=== PATIENT | male | born 1970 ===

== ENCOUNTER 2024-11-21 17:17 | Emergency (ER) | payer OTHER ==
[2024-11-21] MEDS ORDERED: propofoL 200 MG/20 ML VIAL IV ONE ×6 (17:30→20:00)
[2024-11-21] MEDS ORDERED: CEFTRIAXONE/SODIUM CHLORIDE 2 GM/100 ML PIGGYBACK IV ONE (17:30)
[2024-11-21] MEDS ORDERED: LACTATED RINGER'S 1,000 ML IV ONE (17:30)
[2024-11-21] MEDS ORDERED: fentaNYL citrate 100 MCG/2 ML VIAL IV ONE ×2 (17:30→19:00)
[2024-11-21] MEDS ORDERED: propofoL 100 ML IV SCH (17:45)
[2024-11-21] MEDS ORDERED: FENTANYL CITRATE-0.9 % NACL/PF 100 ML IV SCH (17:45)
[2024-11-21 17:50] LABS: BASOPHILS 0.2 % (0-2); HEMATOCRIT 44.8 % (35.0-50.0); HEMOGLOBIN 15.5 g/dL (12.0-18.0); LYMPHOCYTES 6.2 % (24-44); MCH 33.8 (27-36); MCHC 34.5 g/dl (30-36); MCV 97.9 fl (81-99); MONOCYTES 12.3 % (0-12); NEUTROPHILS 81.3 % (39-80); PARTIAL THROMBOPLASTIN TIME 25.2 Sec (22.9-41.3); PLATELET COUNT 114 K/uL (140-440); RBC 4.57 M/ul (4.3-5.7)
[2024-11-21 17:50] LABS: BILIRUBIN, URINE NEGATIVE (negative); BLOOD/HGB, URINE LARGE (Negative); KETONE, URINE SMALL (Negative); LEUK ESTERASE, URINE NEGATIVE (negative); NITRITE, URINE NEGATIVE (negative)
[2024-11-21 17:51] LABS: INR 1.01 (0.80-1.30); PROTIME 13.2 Sec (11.2-14.2)
[2024-11-21 17:57] LABS: BACTERIA, URINE NONE SEEN /hpf (negative); CASTS, URINE HYALINE 2+ \\lpf; COLLECTION TYPE, URINE CLEAN CATCH; CRYSTALS, URINE NONE SEEN (0-1+); EPITHELIAL CELLS, URINE NONE SEEN /lpf (0-1+); RED BLOOD CELLS, URINE 0-1 /hpf (0-5); REFLEX CULTURE, URINE No (No); WHITE BLOOD CELLS, URINE 0-1 /HPF (0-5)
[2024-11-21] MEDS ORDERED: propofoL 200 MG/20 ML VIAL ONE ×3 (17:58→19:30)
[2024-11-21 18:01] LABS: BASE EXCESS, BLOOD GAS -4.2 mmol/L (-2-2); HCO3, BLOOD GAS 22.5 mmol/L (22-26); O2 SATURATION, BLOOD GAS 96.4 % (95.0-100.0); OXYGEN RECEIVED, BLOOD GAS 40%; PH, BLOOD GAS 7.28 (7.35-7.45); PO2, BLOOD GAS 98 mmHg (80-100); TOTAL CO2, BLOOD GAS 23.9
[2024-11-21 18:02] LABS: LACTIC ACID, BLOOD 7.2 mmol/L (0.4-2.0)
[2024-11-21 18:04] LABS: ALBUMIN 4.5 g/dL (3.4-5.0); ANION GAP 22.2 (7-21); BILIRUBIN, TOTAL 1.8 ng/dL (0.2-1.0); BUN/CREATININE RATIO 8.98 (6.0-28.6); CALCIUM 9.3 mg/dL (8.5-10.1); CREATININE, SERUM 0.89 mg/dL (0.70-1.30); POTASSIUM 4.2 mmol/L (3.5-5.1)
[2024-11-21 18:10] LABS: AMPHETAMINES, URINE NEGATIVE (NEGATIVE); BARBITURATES, URINE NEGATIVE (NEGATIVE); BENZODIAZEPINE, URINE POSITIVE (NEGATIVE); BUPRENORPHINE, URINE NEGATIVE (NEGATIVE); CANNABINOID, URINE NEGATIVE (NEGATIVE); COCAINE, URINE NEGATIVE (NEGATIVE); ECSTASY, URINE NEGATIVE (NEGATIVE); FENTANYL, URINE POSITIVE (NEGATIVE); METHADONE, URINE NEGATIVE (NEGATIVE); OPIATES, URINE NEGATIVE (NEGATIVE); OXYCODONE, URINE NEGATIVE (NEGATIVE); PHENCYCLIDINE, URINE NEGATIVE (NEGATIVE)
[2024-11-21] MEDS ORDERED: metroNIDAZOLE/SODIUM CHLORIDE 500 MG/100 ML PIGGYBACK IV ONE (18:30)
[2024-11-21 18:36] LABS: ACETAMINOPHEN 0 ug/mL (10-30); SALICYLATE <0.2 mg/dL (2.8-20.0)
[2024-11-21] MEDS ORDERED: levETIRAcetam 500 MG/5 ML VIAL IV ONE (19:45)
[2024-11-21] MEDS ORDERED: propofoL 100 ML IV ONE ×2 (21:14→21:18)
[2024-11-21] MEDS ORDERED: ACETAMINOPHEN 1,000 MG/100 ML VIAL IV ONE (21:45)
[2024-11-21 23:02] VITALS: BP 116/78
== END 2024-11-21 21:35 | disposition short-term general hospital (02) ==
LOC: ED 17:17
PROVIDERS: Emergency Medicine
DX: G40.401 Other generalized epilepsy and epileptic syndromes, not intractable, with status epilepticus (principal); S06.5X9A Traumatic subdural hemorrhage with loss of consciousness of unspecified duration, initial encounter; A41.9 Sepsis, unspecified organism; J18.9 Pneumonia, unspecified organism; R65.20 Severe sepsis without septic shock; G93.41 Metabolic encephalopathy; J96.00 Acute respiratory failure, unspecified whether with hypoxia or hypercapnia; E87.20 Acidosis, unspecified; R74.8 Abnormal levels of other serum enzymes; D69.6 Thrombocytopenia, unspecified; F10.10 Alcohol abuse, uncomplicated; X58.XXXA Exposure to other specified factors, initial encounter
CPT/HCPCS: 36415; 36556; 36600; 51701; 70450; 71045; 71260; 72125; 74177; 80053; 80307; 81001; 82140; 82553; 82803; 83605; 85025; 85610; 85730; 87040; 93005; 93010; 94799; 99291; G0390; G0480; J0131; J0696; J1953; J2704; J3010